=== PATIENT | female | born 1990 | race Two or more races ===

== ENCOUNTER 2017-10-30 17:11 | Inpatient (IN) | payer SELFPAY ==
[~2017-10-30] VITALS: Ht 154.9 cm; Wt 89.8 kg
[2017-10-30] MEDS ORDERED: NKM (17:17)
--- NOTE | 2017-10-30 17:28 | Emergency Room Report ---
History of Present Illness General Chief Complaint: Lower Back Pain or Injury Source: Patient, EMS Present Illness HPI 27-year-old female presents emergency department complaining of 10 out of 10 in severity acute onset sharp shooting lower back pain when she sat down to use the restroom. Patient states that for the prior 2 days she has been having dull low back pain but no acute exacerbations of her pain similar in character to what she is experiencing right now. Patient also reports urinary urgency, denies hematuria she denies fevers or chills, nausea or vomiting, constipation/ diarrhea or abdominal tenderness. Pain is currently exacerbated with any slight movement. She denies history of sciatica she states that she has intermittently had low back pain before but it was always very mild in nature and easily relieved with [id number] pain medications. Patient denies trauma or fall. Denies numbness tingling or loss of sensation or gross motor movements of the extremities, incontinence of bowel or bladder. Denies CP, Palpitations, LOC, AMS, dizziness, Changes in Vision, paresthesias, or a sudden severe headache. Allergies: Coded Allergies: No Known Allergies (Verified , 10/23/07) Patient History Past Medical History: see triage record Past Surgical History: none Pertinent Family History: none Last Menstrual Period: 10/28/2017 Now: No Reviewed Nursing Documentation: PMH: Agreed; PSxH: Agreed Nursing Documentation-PMH Past Medical History: No Stated History Review of Systems All Other Systems: negative except mentioned in HPI Physical Exam Vital Signs Date Time Temp Pulse Resp B/P (MAP) Pulse Ox O2 Delivery O2 Flow Rate FiO2 10/30/17 17:13 97.8 85 19 138/83 99 Room Air 97.9 Sp02 EP Interpretation: reviewed, normal General Appearance: alert, GCS 15, non-toxic, moderate distress Head: normocephalic, atraumatic ENT: hearing grossly normal, normal voice Neck: full range of motion Respiratory: chest non-tender, lungs clear, normal breath sounds, speaking full sentences Cardiovascular #1: regular rate, rhythm, no edema, normal capillary refill Cardiovascular #2: 2+ dorsalis pedis (R), 2+ dorsalis pedis (L) Gastrointestinal: normal bowel sounds, non tender, soft Rectal: deferred Genitourinary: normal inspection Musculoskeletal: back normal, other - Unable to ambulate due to pain, pt. cannot perform straight leg raise. significant pain with the slightest of movements. , tender - moderate TTP across the lumbar area both paraspinal and midline. Neurologic: alert, oriented x3, responsive, sensory intact, speech normal, other - evaluation limited due to pt. having pain, grossly normal Psychiatric: judgement/insight normal Skin: normal color, no rash, warm/dry, well hydrated Medical Decision Making PA Attestation Dr. arroyo is my supervising Physician whom patient management has been discussed with. Diagnostic Impression: Primary Impression: Acute low back pain Qualified Codes: M54.5 - Low back pain Additional Impression: Spondylolysis of lumbar region ER Course 27-year-old female presents emergency department complaining of 10 out of 10 in severity acute onset sharp shooting lower back pain when she sat down to use the restroom. Patient states that for the prior 2 days she has been having dull low back pain but no acute exacerbations of her pain similar in character to what she is experiencing right now. Patient also reports urinary urgency, denies hematuria she denies fevers or chills, nausea or vomiting, constipation/ diarrhea or abdominal tenderness. Pain is currently exacerbated with any slight movement. She denies history of sciatica she states that she has intermittently had low back pain before but it was always very mild in nature and easily relieved with [id number] pain medications. Patient denies trauma or fall. Denies numbness tingling or loss of sensation or gross motor movements of the extremities, incontinence of bowel or bladder. Denies CP, Palpitations, LOC, AMS, dizziness, Changes in Vision, paresthesias, or a sudden severe headache. Ddx considered but are not limited to Sciatica, muscle strain/spasm, Pyelonephritis, UTI, kidney stone, herniated disc just to name a few. Vital signs: are WNL, pt. is afebrile H&PE are most consistent with possible sciatic nerve impingement/muscle spasm/ strain. I do not suspect spinal chord injury, no evidence of cauda equina. ORDERS: -CBC,CMB, all WNL except for elevated AST/ALT -UA: unremarkable -Urine Hcg: negative -CT L-Spine No Contrast ED INTERVENTIONS: -Morphine IM -Toradol IM -Ativan 1 mg IV -Morphine IV DISPOSITION: at this time pt. will be admitted to Dr. Fletcher for Intractable back pain. Dr. Fletcher agreed to admit the pt. and to continue pt. care management. Labs Test 10/30/17 18:10 Urine Color Pale yellow Urine Appearance Clear Urine pH 7 (4.5-8.0) Urine Specific [place] 1.005 (1.005-1.035) Urine Protein Negative (NEGATIVE) Urine Glucose (UA) Negative (NEGATIVE) Urine Ketones Negative (NEGATIVE) Urine Occult Blood Negative (NEGATIVE) Urine Nitrite Negative (NEGATIVE) Urine Bilirubin Negative (NEGATIVE) Urine Urobilinogen Normal MG/DL (0.0-1.0) Urine Leukocyte Esterase Negative (NEGATIVE) Urine HCG, Qualitative Negative (NEGATIVE) CT/MRI/US Diagnostic Results CT/MRI/US Diagnostic Results : Imaging Test Ordered: CT L-Spine No Contrast Impression "No fracture or malalignment. Incidental spondylolysis at L5. Partially visualized cystic structure in the pelvis could be extended bladder or other cystic lesion." Per official radiology report- Please see report for specific details. Last Vital Signs Date Time Temp Pulse Resp B/P (MAP) Pulse Ox O2 Delivery O2 Flow Rate FiO2 10/30/17 17:13 97.8 85 19 138/83 99 Room Air 97.9 Disposition: ADMITTED INPATIENT Condition: Magdalena Canela October 30, 2017 17:28
[2017-10-30] MEDS ORDERED: Morphine Sulfate 10mg/ml Inj IM ONE (17:30)
[2017-10-30] MEDS ORDERED: Ketorolac 60mg Inj IM ONE (17:30)
[2017-10-30 17:37] VITALS: BP 138/83
[2017-10-30] MEDS ORDERED: LORazepam Inj 2mg/ml 1ml IV ONE (18:15)
[2017-10-30 18:45] LABS: APPEARANCE,URINE CLEAR; BILIRUBIN, URINE NEGATIVE (NEGATIVE); COLOR,URINE PALE YELLOW; GLUCOSE, URINE (UA) NEGATIVE (NEGATIVE); KETONES,URINE NEGATIVE (NEGATIVE); LEUKOCYTE ESTERASE ,URINE NEGATIVE (NEGATIVE); NITRITE,URINE NEGATIVE (NEGATIVE); PH,URINE 7 (4.5-8.0); PROTEIN,URINE NEGATIVE (NEGATIVE); UROBILINOGEN,URINE NORMAL MG/DL (0.0-1.0)
[2017-10-30 19:30] VITALS: BP 127/70
[2017-10-30 21:28] LABS: BASOPHILS % (AUTO) 0.7 % (0.0-2.0); EOSINOPHILS % (AUTO) 1.1 % (0.0-3.0); HEMATOCRIT 39.6 % (37.0-47.0); LYMPHOCYTES % (AUTO) 18.3 % (20.0-45.0); MEAN CORPUSCULAR VOLUME 90 FL (80-99); MONOCYTES % (AUTO) 4.8 % (1.0-10.0); NEUTROPHILS % (AUTO) 75.1 % (45.0-75.0); PLATELET COUNT 281 K/UL (150-450); RED BLOOD COUNT 4.39 M/UL (4.20-5.40); RED CELL DISTRIBUTION WIDTH 10.9 % (11.6-14.8); WHITE BLOOD COUNT 10.5 K/UL (4.8-10.8)
[2017-10-30] MEDS ORDERED: Morphine Sulfate 4mg/ml Inj IVP ONE (21:30)
[2017-10-30 21:38] LABS: ANION GAP 10 mmol/L (5-15); BLOOD UREA NITROGEN 11 mg/dL (7-18); CALCIUM 8.7 MG/DL (8.5-10.1); CARBON DIOXIDE 24 MMOL/L (21-32); CHLORIDE 106 MMOL/L (98-107); CREATININE 0.7 MG/DL (0.55-1.30); POTASSIUM 3.7 MMOL/L (3.5-5.1); SODIUM 140 MMOL/L (136-145)
[2017-10-30 21:43] LABS: ALANINE AMINOTRANSFERASE 107 U/L (12-78); ALBUMIN 3.8 G/DL (3.4-5.0); ALKALINE PHOSPHATASE 105 U/L (46-116); ASPARTATE AMINO TRANSFERASE 159 U/L (15-37); BILIRUBIN,TOTAL 0.4 MG/DL (0.2-1.0)
[2017-10-30 22:26] VITALS: BP 128/80
[2017-10-30 22:45] VITALS: BP 132/76
[2017-10-31] VITALS: BP 130/74
[2017-10-31] MEDS: Morphine Sulfate 4mg/ml Inj IVP PRN ×4 (00:16→22:09)
[2017-10-31 04:00] VITALS: BP 136/83
[2017-10-31 08:17] LABS: ANION GAP 9 mmol/L (5-15); BASOPHILS % (AUTO) 0.6 % (0.0-2.0); BLOOD UREA NITROGEN 10 mg/dL (7-18); CALCIUM 8.7 MG/DL (8.5-10.1); CARBON DIOXIDE 27 MMOL/L (21-32); CHLORIDE 103 MMOL/L (98-107); CREATININE 0.6 MG/DL (0.55-1.30); EOSINOPHILS % (AUTO) 1.3 % (0.0-3.0); HEMATOCRIT 39.6 % (37.0-47.0); HEMOGLOBIN 13.7 G/DL (12.0-16.0); LYMPHOCYTES % (AUTO) 20.6 % (20.0-45.0); MEAN CORPUSCULAR VOLUME 93 FL (80-99); MONOCYTES % (AUTO) 5.4 % (1.0-10.0); NEUTROPHILS % (AUTO) 72.2 % (45.0-75.0); PLATELET COUNT 258 K/UL (150-450); POTASSIUM 3.9 MMOL/L (3.5-5.1); RED BLOOD COUNT 4.23 M/UL (4.20-5.40); RED CELL DISTRIBUTION WIDTH 11.3 % (11.6-14.8); SODIUM 139 MMOL/L (136-145)
[2017-10-31 08:30] VITALS: BP 129/76
--- NOTE | 2017-10-31 09:37 | Diagnostic Imaging Report ---
Indication: Back pain Technique: Continuous helical transaxial imaging of the lumbar spine was obtained from the lung bases to the pubic symphysis. No IV contrast was administered. Coronal 2-D reformats were also obtained. Study obtained in a Siemens sensation [address] Total Dose length Product (DLP): 474.[address] Dose Index Volume (CTDIvol): 19.13 mGy Comparison: None Findings: There is no evidence of an acute fracture or malalignment. Height and configuration of the vertebral bodies and intervertebral discs are within normal limits. The facets are unremarkable. There is no soft tissue swelling. Impression: Negative lumbar spine CT The CT scanner at [facility] is accredited by the [employer] and the scans are performed using dose optimization techniques as appropriate to a performed exam including Automatic Exposure control.
[2017-10-31 11:54] VITALS: BP 122/79
--- NOTE | 2017-10-31 12:35 | History and Physical ---
History of Present Illness General Date patient seen: October 31, 2017 Time patient seen: 12:35 Reason for Hospitalization: Lower Back Pain or Injury Present Illness HPI 27 y/o female with no significant past medical history presented to the ED for severe low back pain. Patient states that she has been having progressively worsening low back pain for the last several days. Patient states that last night, patient had a sudden onset of acute low back pain while she was in the bathroom and states that she has not been able to move. She was brought to the ER and CT L spine was done, which was unremarkable. UA was also unremarkable with no hematuria. Denies chest pain, sob, f/c, n/v, abdominal pain. Denies any trauma to the area or heavy lifting. Denies IV drug use or other illicit drug use. Denies sensory or motor deficits. Denies urinary/bowel incontinence. Family at bedside. Allergies: Coded Allergies: No Known Allergies (Verified , 10/23/07) Medication History Scheduled No Known Medications* (NKM - No Known Medications*), 0 ., (Reported) Patient History History Provided By: Patient, Family Member Healthcare decision maker N Resuscitation status Advanced Directive on File Review of Systems All Other Systems: negative except mentioned in HPI Physical Exam General Appearance: no apparent distress, alert HEENT: normocephalic, atraumatic Neck: non-tender, normal alignment, supple Respiratory/Chest: chest wall non-tender, lungs clear, normal breath sounds Cardiovascular/Chest: normal peripheral pulses, normal rate, regular rhythm Abdomen: normal bowel sounds, non tender, soft Neurologic: alert, oriented x 3, other - unable to perform straight leg test due to back pain with movement of lower extremities. mild tenderness upon palpation to low back. no sensory deficit. Last 24 Hour Vital Signs Date Time Temp Pulse Resp B/P (MAP) Pulse Ox O2 Delivery O2 Flow Rate FiO2 10/31/17 11:54 97.5 79 20 122/79 95 97.5 10/31/17 08:30 98.1 78 20 129/76 95 98.1 10/31/17 04:00 97.1 77 18 136/83 97 Room Air 97.1 10/31/17 00:00 97.8 79 18 130/74 99 Room Air 97.8 10/30/17 22:58 97.8 78 18 128/80 98 Room Air 97.8 10/30/17 22:45 98.1 84 20 132/76 97 Room Air 98.1 10/30/17 22:26 78 18 128/80 98 Room Air 10/30/17 22:24 97.8 10/30/17 21:57 97.8 10/30/17 19:30 98.0 82 18 127/70 98 Room Air 98.0 10/30/17 18:51 97.8 10/30/17 18:51 97.8 10/30/17 17:37 85 19 138/83 99 Room Air 10/30/17 17:29 97.8 10/30/17 17:29 97.8 10/30/17 17:13 97.8 85 19 138/83 99 Room Air 97.9 Intake and Output 10/30/17 10/31/17 19:00 07:00 Intake Total 100 ml Output Total 700 ml 800 ml Balance -700 ml -700 ml Intake Oral 100 ml Output Urine Total 700 ml 800 ml Laboratory Tests Test 10/30/17 18:10 10/30/17 21:15 10/31/17 06:52 Urine Color Pale yellow Urine Appearance Clear Urine pH 7 (4.5-8.0) Urine Specific [place] 1.005 (1.005-1.035) Urine Protein Negative (NEGATIVE) Urine Glucose (UA) Negative (NEGATIVE) Urine Ketones Negative (NEGATIVE) Urine Occult Blood Negative (NEGATIVE) Urine Nitrite Negative (NEGATIVE) Urine Bilirubin Negative (NEGATIVE) Urine Urobilinogen Normal MG/DL (0.0-1.0) Urine Leukocyte Esterase Negative (NEGATIVE) Urine HCG, Qualitative Negative (NEGATIVE) White Blood Count 10.5 K/UL (4.8-10.8) 7.0 K/UL (4.8-10.8) Red Blood Count 4.39 M/UL (4.20-5.40) 4.23 M/UL (4.20-5.40) Hemoglobin 14.0 G/DL (12.0-16.0) 13.7 G/DL (12.0-16.0) Hematocrit 39.6 % (37.0-47.0) 39.6 % (37.0-47.0) Mean Corpuscular Volume 90 FL (80-99) 93 FL (80-99) Mean Corpuscular Hemoglobin 31.9 PG (27.0-31.0) H 32.4 PG (27.0-31.0) H Mean Corpuscular Hemoglobin Concent 35.3 G/DL (32.0-36.0) 34.7 G/DL (32.0-36.0) Red Cell Distribution Width 10.9 % (11.6-14.8) L 11.3 % (11.6-14.8) L Platelet Count 281 K/UL (150-450) 258 K/UL (150-450) Mean Platelet Volume 7.6 FL (6.5-10.1) 7.8 FL (6.5-10.1) Neutrophils (%) (Auto) 75.1 % (45.0-75.0) H 72.2 % (45.0-75.0) Lymphocytes (%) (Auto) 18.3 % (20.0-45.0) L 20.6 % (20.0-45.0) Monocytes (%) (Auto) 4.8 % (1.0-10.0) 5.4 % (1.0-10.0) Eosinophils (%) (Auto) 1.1 % (0.0-3.0) 1.3 % (0.0-3.0) Basophils (%) (Auto) 0.7 % (0.0-2.0) 0.6 % (0.0-2.0) Sodium Level 140 MMOL/L (136-145) 139 MMOL/L (136-145) Potassium Level 3.7 MMOL/L (3.5-5.1) 3.9 MMOL/L (3.5-5.1) Chloride Level 106 MMOL/L (98-107) 103 MMOL/L (98-107) Carbon Dioxide Level 24 MMOL/L (21-32) 27 MMOL/L (21-32) Anion Gap 10 mmol/L (5-15) 9 mmol/L (5-15) Blood Urea Nitrogen 11 mg/dL (7-18) 10 mg/dL (7-18) Creatinine 0.7 MG/DL (0.55-1.30) 0.6 MG/DL (0.55-1.30) Estimat Glomerular Filtration Rate > 60 mL/min (>60) > 60 mL/min (>60) Glucose Level 116 MG/DL (74-106) H 99 MG/DL (74-106) Calcium Level 8.7 MG/DL (8.5-10.1) 8.7 MG/DL (8.5-10.1) Total Bilirubin 0.4 MG/DL (0.2-1.0) Aspartate Amino Transf (AST/SGOT) 159 U/L (15-37) H Alanine Aminotransferase (ALT/SGPT) 107 U/L (12-78) H Alkaline Phosphatase 105 U/L (46-116) Total Protein 7.5 G/DL (6.4-8.2) Albumin 3.8 G/DL (3.4-5.0) Globulin 3.7 g/dL Albumin/Globulin Ratio 1.0 (1.0-2.7) Height (Feet): 5 Height (Inches): 1.00 Weight (Pounds): 198 Medications Current Medications Medications (Trade) Dose Ordered Sig/Marivel Route PRN Reason Start Time Stop Time Status Last Admin Dose Admin Gabapentin (Neurontin) 100 mg THREE TIMES A DAY ORAL 10/30/17 23:49 11/29/17 23:48 10/31/17 08:32 Ibuprofen (Motrin) 600 mg Q6H PRN ORAL For Pain 10/30/17 23:45 11/29/17 23:44 Lidocaine (Lidoderm 5% PATCH) 1 patch DAILY TDERMAL 10/31/17 09:00 11/30/17 08:59 10/31/17 08:32 Morphine Sulfate (Morphine Sulfate) 2 mg EVERY 2 HOURS PRN IVP Breakthrough Pain 10/30/17 23:45 11/06/17 23:44 Morphine Sulfate (Morphine Sulfate) 4 mg Q4H PRN IVP Moderate Pain (Pain Scale 4-6) 10/30/17 23:45 11/06/17 23:44 Morphine Sulfate (Morphine Sulfate) 6 mg Q4H PRN IVP Severe Pain (Pain Scale 7-10) 10/30/17 23:45 11/06/17 23:44 10/31/17 04:18 Ondansetron HCl (Zofran) 4 mg EVERY 4 HOURS PRN IVP Nausea & Vomiting 10/30/17 23:45 11/29/17 23:44 Assessment/Plan Problem List: (1) Acute low back pain ICD Codes: M54.5 - Low back pain SNOMED: 914483749 Qualifiers: Qualified Codes: M54.5 - Low back pain (2) Intractable back pain ICD Codes: M54.9 - Dorsalgia, unspecified SNOMED: 844238504 (3) Transaminitis ICD Codes: R74.0 - Nonspecific elevation of levels of transaminase and lactic acid dehydrogenase [LDH] SNOMED: 613756940, 782011218 Status: not improved Assessment/Plan - Admit to inpatient - CT L spine negative - f/u MRI L spine - Robaxin 1000mg QID - prednisone 60mg qd - IV morphine for breakthrough pain - UA unremarkable. low suspicion for nephrolithiasis - trend LFTs. check ETOH, acetaminophen level, hepatitis panel DVT ppx: HSQ Full Code Disposition: Home with home health I spent a total of 71 minutes on this patient's case with greater than 50% spent on care and coordination of this patient's case. Case was d/w patient, family, nursing staff, and Dr. Fletcher. Adriana Silverman NP October 31, 2017 12:35
[2017-10-31] MEDS: Methocarbamol 500mg tab ORAL SCH ×3 (13:14→20:58)
--- NOTE | 2017-10-31 15:35 | Diagnostic Imaging Report ---
Indication: Back pain Technique: MRI examination of the Lumbar spine was performed in a 1.5 Duyen magnet. Sequences obtained include sagittal and axial T1 and T2 fast spin echo, and sagittal STIR. Comparison: none Findings: There is a 5 mm disc protrusion at L4-5 abutting the anterior aspect of the thecal sac. There is no visualized nerve root impingement. No evidence of central canal or neural foraminal stenosis. There is mild desiccation of the L4-5 intervertebral disc which may be slightly narrowed as well. Bone marrow signal is normal. Alignment is normal. The visualized part of the distal spinal cord appears normal. The cord terminates at about T12. There is no soft tissue swelling. IMPRESSION: Small disc protrusion noted at L4-5.
[2017-10-31 15:46] VITALS: BP 122/73
[2017-10-31 20:00] VITALS: BP 140/82
[2017-11-01] VITALS: BP 127/80
[2017-11-01] MEDS: Morphine Sulfate 4mg/ml Inj IVP PRN ×5 (00:09→13:08)
[2017-11-01] MEDS: Miralax 17gm pkt ORAL SCH ×2 (00:37→08:37)
[2017-11-01 04:49] VITALS: BP 134/73
[2017-11-01 08:00] VITALS: BP 119/86
[2017-11-01 08:17] LABS: BASOPHILS % (AUTO) 0.7 % (0.0-2.0); EOSINOPHILS % (AUTO) 1.2 % (0.0-3.0); HEMATOCRIT 41.6 % (37.0-47.0); HEMOGLOBIN 14.7 G/DL (12.0-16.0); LYMPHOCYTES % (AUTO) 20.2 % (20.0-45.0); MEAN CORPUSCULAR VOLUME 93 FL (80-99); MONOCYTES % (AUTO) 5.4 % (1.0-10.0); NEUTROPHILS % (AUTO) 72.6 % (45.0-75.0); PLATELET COUNT 272 K/UL (150-450); RED BLOOD COUNT 4.48 M/UL (4.20-5.40); WHITE BLOOD COUNT 10.6 K/UL (4.8-10.8)
[2017-11-01 08:36] LABS: ALANINE AMINOTRANSFERASE 352 U/L (12-78); ALBUMIN 3.8 G/DL (3.4-5.0); ALBUMIN/GLOBULIN RATIO 0.9 (1.0-2.7); ALKALINE PHOSPHATASE 105 U/L (46-116); ANION GAP 7 mmol/L (5-15); ASPARTATE AMINO TRANSFERASE 82 U/L (15-37); BILIRUBIN,TOTAL 0.5 MG/DL (0.2-1.0); BLOOD UREA NITROGEN 8 mg/dL (7-18); CALCIUM 8.9 MG/DL (8.5-10.1); CARBON DIOXIDE 29 MMOL/L (21-32); CHLORIDE 103 MMOL/L (98-107); CREATININE 0.6 MG/DL (0.55-1.30); POTASSIUM 3.7 MMOL/L (3.5-5.1); SODIUM 139 MMOL/L (136-145)
[2017-11-01] MEDS: Methocarbamol 500mg tab ORAL SCH ×2 (08:37→14:21)
[2017-11-01] MEDS ORDERED: Miralax 17gm pkt ORAL SCH (09:00)
[2017-11-01 12:00] VITALS: BP 115/68
[2017-11-01] MEDS ORDERED: METHOCARBAMOL500 MG ORAL (14:43)
[2017-11-01] MEDS ORDERED: MEDROL4 M1 PO (14:43)
[2017-11-01 15:54] VITALS: BP 109/69
--- NOTE | 2017-11-07 07:14 | Discharge Summary ---
Discharge Summary Hospital Course Date of Admission October 30, 2017 at 20:20 Date of Discharge Nov 01, 2017 at 17:59 Admitting Diagnosis intractable pain HPI Erica Gomez is a 27 year old female who was admitted on October 30, 2017 at 20: 20 for Intractable Pain 27 y/o female with no significant past medical history presented to the ED for severe low back pain. Patient states that she has been having progressively worsening low back pain for the last several days. Patient states that last night, patient had a sudden onset of acute low back pain while she was in the bathroom and states that she has not been able to move. She was brought to the ER and CT L spine was done, which was unremarkable. UA was also unremarkable with no hematuria. Denies chest pain, sob, f/c, n/v, abdominal pain. Denies any trauma to the area or heavy lifting. Denies IV drug use or other illicit drug use. Denies sensory or motor deficits. Denies urinary/bowel incontinence. Family at bedside. Consultations none Procedures none Hospital Course Patient was further admitted for pain control. CT L spine was negative. MRI L spine showed small disc protrusion at L4-5. Patient was started on prednisone and robaxin. Patient's pain improved and patient was able to ambulate well with PT with a walker. Patient was also noted to have elevated LFTs, which downtrended. ETOH and acetaminophen levels were wnl. Patient was further advised to f/u with PMD to repeat CMP and further workup for transaminitis within 2-3 days. Patient was stable for discharge and was discharged to home with home health. Physical Exam General Appearance: no apparent distress, alert HEENT: normocephalic, atraumatic Neck: non-tender, normal alignment, supple Respiratory/Chest: chest wall non-tender, lungs clear, normal breath sounds Cardiovascular/Chest: normal peripheral pulses, normal rate, regular rhythm Abdomen: normal bowel sounds, non tender, soft Neurologic: alert, oriented x 3, other - unable to perform straight leg test due to back pain with movement of lower extremities. mild tenderness upon palpation to low back. no sensory deficit. Discharge Medications New Medications: Methylprednisolone (Medrol) 4 Mg Tab.ds.pk 4 MG PO DAILY, #1 PACK Methocarbamol* (Methocarbamol*) 500 Mg Tablet 1000 MG ORAL QID for 15 Days, #60 TAB Discharge Condition Upon Discharge: improving, stable Discharge Disposition Patient was discharged to Home with Home Health(06) Discharge Diagnoses: (1) Protrusion of lumbar intervertebral disc (2) Transaminitis (3) Intractable back pain Adriana Silverman NP Nov 07, 2017 07:14
== END 2017-11-01 17:59 | disposition home health service (06) | DRG 552 ==
LOC: EDBD 17:11 → EMR 17:37 → 4W 20:20 → EDBEDREQ 21:49 → 4E 11-01 06:21
DX: M51.26 Other intervertebral disc displacement, lumbar region (principal); M43.06 Spondylolysis, lumbar region; R74.0 Nonspecific elevation of levels of transaminase and lactic acid dehydrogenase [LDH]
CPT/HCPCS: 36415; 72131; 72148; 80048; 80053; 80329; 81003; 81025; 85025; 86705; 86709; 86803; 87340; 99284